=== PATIENT | female | born 1945 | race Caucasian/White ===

== ENCOUNTER → 2018-01-12 10:03 | Outpatient (CLI) | payer MEDICARE, OTHER, SELFPAY ==
--- NOTE | 2018-01-12 | DI.RAD.S_ITS ---
PROCEDURE: XR RIBS LT 2V INDICATIONS: PLEURODYNIA INTERCOSTAL PAIN TECHNIQUE: 2 views of the left ribs were acquired. COMPARISON: None. FINDINGS: Surgical changes and devices: None. Bones and chest wall: No fractures or dislocations. No suspicious bony lesions. Overlying soft tissues appear unremarkable. Lungs and pleura: The visualized lung appears clear. No pleural effusions or pneumothorax are visible. IMPRESSION: Source of pain is not seen. Depending on the clinical status followup by a nuclear medicine bone scan may become necessary. Dictated by: Jaime Palacio M.D. on 01/12/2018 at 10:32 Approved by: Jaime Palacio M.D. on 01/12/2018 at 10:32
--- NOTE | 2018-01-12 | DI.RAD.S_ITS ---
PROCEDURE: XR CHEST 2V INDICATIONS: PLEURODYNIA INTERCOSTAL PAIN TECHNIQUE: 2 views of the chest were acquired. COMPARISON: [facility], CR, RIBS UNILATERAL WITH PA CXR, 04/13/2015, 10:31. [facility], CR, XR RIBS LT 2V, 01/12/2018, 9:52. FINDINGS: Surgical changes and devices: None. Lungs and pleura: No pleural effusions or pneumothorax. Lungs are unchanged, source of pain is not seen.. Mediastinum: Mediastinal contours are normal. Heart size is normal. Bones and chest wall: No suspicious bony abnormalities. Soft tissues appear unremarkable. IMPRESSION: Source of pain is not identified. Dictated by: Jaime Palacio M.D. on 01/12/2018 at 10:31 Approved by: Jaime Palacio M.D. on 01/12/2018 at 10:32
== END ==
PROVIDERS: Family Provider Internal Medicine; PCP Internal Medicine; Visit Provider Physician Assistant
DX: R07.81 Pleurodynia (principal); R07.82 Intercostal pain
CPT/HCPCS: 71046; 71100

== ENCOUNTER 2018-07-04 09:02 | Emergency (ER) | payer MEDICARE, OTHER, SELFPAY ==
--- NOTE | 2018-07-04 09:07 | DI.RAD.S_ITS ---
PROCEDURE: XR CHEST 1V INDICATIONS: chest pain TECHNIQUE: One view of the chest was acquired. COMPARISON: None. FINDINGS: Surgical changes and devices: None. Lungs and pleura: No pleural effusions or pneumothorax. Mild diffuse reticulonodular interstitial opacities present. Mediastinum: Mediastinal contours appear normal. Heart size is normal. Bones and chest wall: No suspicious bony lesions. Overlying soft tissues appear unremarkable. IMPRESSION: Mild atypical pneumonia. Dictated by: Casey Ng M.D. on 07/04/2018 at 9:29 Approved by: Casey Ng M.D. on 07/04/2018 at 9:30
[2018-07-04 09:11] VITALS: BP 156/66; PULSE 90; RESP 15; TEMP 36.7; O2SAT 96; BMI 31.1
[2018-07-04 09:13] LABS: Add Manual Diff / Slide Review NO; Basophils Percent Auto 0.6 % (0-2); Eosinophils Percent Auto 3.6 % (2-4); Hematocrit 40.3 % (36-46); Hemoglobin 13.2 g/dL (12.0-16.0); Lymphocytes Percent Auto 27.5 % (25-40); Mean Corpuscular HGB Conc 32.9 % (30-36); Mean Corpuscular Hemoglobin 28.3 PG (26-34); Mean Corpuscular Volume 85.9 fL (80-100); Monocytes Percent Auto 11.1 % (3-14); Neutrophils Absolute Auto 4300 /uL (1500-7000); Neutrophils Percent Auto 57.2 % (50-75); Platelet Count 264 X10^3/uL (150-400); Red Blood Cell Count 4.69 X10^6/uL (4.0-5.2); Red Cell Distribution Width 14.4 % (11.6-14.8); White Blood Cell Count 7.5 X10^3/uL (4.5-11.0)
[2018-07-04] MEDS: SODIUM CHLORIDE 0.9% 1,000 ML 1000 ML IV (09:17)
[2018-07-04 09:22] LABS: PTT Partial Thromboplastin Tim 32 SECONDS (26.4-36.2)
[2018-07-04 09:24] LABS: Alanine Aminotransferase 23 IU/L (9-52); Albumin 4.5 g/dL (3.5-5.0); Albumin Globulin Ratio 1.5 (1.0-2.8); Alkaline Phosphatase 69 U/L (38-126); Aspartate Aminotransferase 20 IU/L (14-36); BUN Creatinine Ratio 21.3 (6-22); Bilirubin Total 0.3 mg/dL (0.2-1.3); Blood Urea Nitrogen 17 mg/dL (7-17); Calcium 9.3 mg/dL (8.4-10.2); Carbon Dioxide 24 mmol/L (22-32); Chloride 106 mmol/L (98-107); Creatine Kinase 68 U/L (30-135); Estimated Glomerular Filt Rate > 60.0 mL/min (>60); Glucose 105 mg/dL (80-110); HEMOLYSIS < 15 (0-50); Lipase 51 U/L (23-300); Potassium 4.1 mmol/L (3.4-5.1); Sodium 143 mmol/L (137-145); Total Protein 7.5 g/dL (6.3-8.2)
--- NOTE | 2018-07-04 09:30 | ED_ITS ---
HPI - Chest Pain General Chief Complaint: Chest Pain Stated Complaint: Chest Pain Time Seen by Provider: 07/04/18 09:06 Source: patient and EMS Mode of arrival: EMS Limitations: no limitations History of Present Illness HPI narrative: Patient is a 72-year-old female who presents with chest discomfort. She was on the elliptical her 6 min when she started developing pain. She actually had already been on a treadmill and lifted weights prior to this without any difficulty. The 1st time she has exercised in a number of months. She developed chest discomfort and heaviness which did begin to improve when she stopped. However EMS was there she was given nitroglycerin and brought to the hospital for further evaluation. She is currently chest pain -free. She did have an episode similar to this with her hiatal hernia. MD complaint: chest pain Onset (ago): minute(s) Severity: moderate Quality: tightness Pain radiation: none Relieving factors: nitroglycerin and rest Treatments prior to arrival chest pain: aspirin and nitroglycerin Related Data On Oral Contraceptives: No Home Medications Medication Instructions Recorded Confirmed amlodipine 5 mg tablet 5 mg PO DAILY 03/29/18 04/03/18 Allergies Allergy/AdvReac Type Severity Reaction Status Date / Time RICKEY Inhibitors Allergy Unknown Verified 04/03/18 11:06 [RICKEY INHIBITORS] STATINS Allergy Unknown Uncoded 04/03/18 11:06 Review of Systems Review of Systems GENERAL: Denies chills, fatigue, malaise, fever, sweats, travel HEENT: Denies sinus pain, ear pain, sore throat, difficulty swallowing, neck pain RESPIRATORY: Denies dyspnea, cough, wheezing, hemoptysis, sputum. CARDIOVASCULAR: See HPI GASTROINTESTINAL: Denies nausea, vomiting, abdominal pain, diarrhea, constipation, melena. : Denies dysuria, frequency, incontinence, hematuria, urinary retention, flank pain. MUSCULOSKELETAL: Denies weakness, joint pain, or bony pain SKIN: No rash, no erythema, no pruritus NEUROLOGIC: Denies weakness, dizziness, headache, numbness, change in speech, confusion PSYCHIATRIC: No concerning psychosocial issues. 12 point review of systems is negative except for those stated above and HPI PFSH Medical History Hyperlipidemia (Chronic) Hypertension (Chronic) Social History Smoking Status: Former smoker Comment: Father NM at age 71 Exam Initial Vital Signs Initial Vital Signs: Vital Signs Temperature 98.0 F 07/04/18 09:11 Pulse Rate 90 07/04/18 09:11 Respiratory Rate 15 07/04/18 09:11 Blood Pressure 156/66 H 07/04/18 09:11 Pulse Oximetry 96 07/04/18 09:11 GENERAL: Well-appearing, well-nourished and in no acute distress. HEENT: Head atraumatic,EOMI, pupils reactive, face symmetric CARDIOVASCULAR: Regular rate and rhythm without murmurs, rubs or gallops. RESPIRATORY: Breath sounds equal bilaterally, no wheezes rales or rhonchi. ABDOMEN: Soft, nontender. Normoactive bowel sounds all 4 quadrants. No guarding or rebound. EXTREMITIES: Normal range of motion, no clubbing or edema. Neurovascularly intact NEUROLOGICAL: Alert and oriented x4.Normal gait and speech. Cranial nerves II through XII grossly intact. SKIN: Warm, dry, no laceration, no petechiae, no rashes or lesions. Scores HEART Score Heart Score history: Slightly Suspicious Heart Score EKG: Normal Heart Score Age: > or = 65 years old Heart Score risk factors: 1-2 risk factors Heart Score troponin: < or = to normal limit Heart Score Total: 3 Course Orders Ordered: ED Orders 07/04/18 09:02 Complete Blood Count AUTO DIFF Stat Comprehensive Metabolic Panel Stat Lipase Stat Partial Thromboplastin Time Stat Prothrombin Time INR Stat Troponin & CK Cardiac Panel Stat 07/04/18 09:07 XR chest 1V Stat EKG-12 Lead Stat 07/04/18 09:37 B Type Natriuretic Peptide Stat 07/04/18 11:00 Troponin I Stat Discontinued Medications Sodium Chloride (Normal Saline 0.9%) 1,000 mls @ 1,000 mls/hr IV CONT KUN Last Infusion: 07/04/18 10:32 Dose: 0 mls/hr Admin: 07/04/18 09:17 Dose: 1,000 mls/hr Vital Signs - 8 hr 07/04/18 09:11 07/04/18 10:32 07/04/18 11:00 Temperature 98.0 F Pulse Rate 90 72 74 Respiratory Rate 15 18 16 Blood Pressure 156/66 H Blood Pressure [Left Arm] 128/47 L 138/48 L Pulse Oximetry 96 98 98 07/04/18 11:32 07/04/18 12:05 Temperature 98.4 F Pulse Rate 69 92 H Respiratory Rate 17 18 Blood Pressure 140/53 L Blood Pressure [Left Arm] 142/51 H Pulse Oximetry 98 98 MDM - Chest Pain Lab Data Attestation: I reviewed the patient's lab results. Result diagrams: 07/04/18 09:02 07/04/18 09:02 Lab Results 07/04/18 07/04/18 07/04/18 Range/Units 09:02 09:02 09:02 WBC 7.5 (4.5-11.0) X10^3/uL RBC 4.69 (4.0-5.2) X10^6/uL Hgb 13.2 (12.0-16.0) g/dL Hct 40.3 (36-46) % MCV 85.9 (80-100) fL MCH 28.3 (26-34) PG MCHC 32.9 (30-36) % RDW 14.4 (11.6-14.8) % Plt Count 264 (150-400) X10^3/uL Neut % (Auto) 57.2 (50-75) % Lymph % (Auto) 27.5 (25-40) % Schleicher % (Auto) 11.1 (3-14) % Eos % (Auto) 3.6 (2-4) % Baso % (Auto) 0.6 (0-2) % Neut # (Auto) 4300 (6009-1560) /uL PT 11.0 (10.1-12.7) SECONDS INR 1.0 (0.9-1.3) APTT 32 (26.4-36.2) SECONDS Sodium 143 (137-145) mmol/L Potassium 4.1 (3.4-5.1) mmol/L Chloride 106 (98-107) mmol/L Carbon Dioxide 24 (22-32) mmol/L BUN 17 (7-17) mg/dL Creatinine 0.80 (0.52-1.04) mg/dL Estimated GFR > 60.0 (>60) mL/min BUN/Creatinine Ratio 21.3 (6-22) Glucose 105 (80-110) mg/dL Calcium 9.3 (8.4-10.2) mg/dL Total Bilirubin 0.3 (0.2-1.3) mg/dL AST 20 (14-36) IU/L ALT 23 (9-52) IU/L Alkaline Phosphatase 69 (38-126) U/L Total Creatine Kinase 68 (30-135) U/L CK-MB (CK-2) TNP CK-MB (CK-2) Rel Index TNP Troponin I < 0.012 (0.01-0.034) ng/mL B-Natriuretic Peptide (<100) Total Protein 7.5 (6.3-8.2) g/dL Albumin 4.5 (3.5-5.0) g/dL Globulin 3.0 (1.7-4.1) g/dL Albumin/Globulin Ratio 1.5 (1.0-2.8) Lipase 51 (23-300) U/L Urine Color Urine Appearance Urine pH (4.5-8.0) Ur Specific [place] (1.000-1.035) Urine Protein (Negative) Urine Glucose (UA) (Normal) g/dL Urine Ketones (NEGATIVE) Urine Occult Blood (Negative) Urine Nitrate (Negative) Urine Bilirubin (NEGATIVE) Urine Urobilinogen (0.2) E.U./dL Ur Leukocyte Esterase (NEGATIVE) Urine RBC (0-5/HPF) Urine WBC (0-5/HPF) Urine Bacteria (None) Ur Culture Indicated? Micro UA Comment 07/04/18 07/04/18 07/04/18 Range/Units 09:37 11:00 Unknown WBC (4.5-11.0) X10^3/uL RBC (4.0-5.2) X10^6/uL Hgb (12.0-16.0) g/dL Hct (36-46) % MCV (80-100) fL MCH (26-34) PG MCHC (30-36) % RDW (11.6-14.8) % Plt Count (150-400) X10^3/uL Neut % (Auto) (50-75) % Lymph % (Auto) (25-40) % Schleicher % (Auto) (3-14) % Eos % (Auto) (2-4) % Baso % (Auto) (0-2) % Neut # (Auto) (1122-7713) /uL PT (10.1-12.7) SECONDS INR (0.9-1.3) APTT (26.4-36.2) SECONDS Sodium (137-145) mmol/L Potassium (3.4-5.1) mmol/L Chloride (98-107) mmol/L Carbon Dioxide (22-32) mmol/L BUN (7-17) mg/dL Creatinine (0.52-1.04) mg/dL Estimated GFR (>60) mL/min BUN/Creatinine Ratio (6-22) Glucose (80-110) mg/dL Calcium (8.4-10.2) mg/dL Total Bilirubin (0.2-1.3) mg/dL AST (14-36) IU/L ALT (9-52) IU/L Alkaline Phosphatase (38-126) U/L Total Creatine Kinase (30-135) U/L CK-MB (CK-2) CK-MB (CK-2) Rel Index Troponin I < 0.012 (0.01-0.034) ng/mL B-Natriuretic Peptide < 100 (<100) Total Protein (6.3-8.2) g/dL Albumin (3.5-5.0) g/dL Globulin (1.7-4.1) g/dL Albumin/Globulin Ratio (1.0-2.8) Lipase (23-300) U/L Urine Color Yellow Urine Appearance Clear Urine pH 5.5 (4.5-8.0) Ur Specific [place] 1.010 (1.000-1.035) Urine Protein Negative (Negative) Urine Glucose (UA) Negative (Normal) g/dL Urine Ketones Negative (NEGATIVE) Urine Occult Blood Negative (Negative) Urine Nitrate Negative (Negative) Urine Bilirubin Negative (NEGATIVE) Urine Urobilinogen 0.2 (0.2) E.U./dL Ur Leukocyte Esterase 1+ H (NEGATIVE) Urine RBC 0-1/hpf (0-5/HPF) Urine WBC 1-5/hpf (0-5/HPF) Urine Bacteria None seen (None) Ur Culture Indicated? Specimen cultured Micro UA Comment Not Reportable Imaging Data Chest x-ray: Radiologist's impression: PROCEDURE: XR CHEST 1V INDICATIONS: chest pain TECHNIQUE: One view of the chest was acquired. COMPARISON: None. FINDINGS: Surgical changes and devices: None. Lungs and pleura: No pleural effusions or pneumothorax. Mild diffuse reticulonodular interstitial opacities present. Mediastinum: Mediastinal contours appear normal. Heart size is normal. Bones and chest wall: No suspicious bony lesions. Overlying soft tissues appear unremarkable. IMPRESSION: Mild atypical pneumonia. Dictated by: Casey Ng M.D. on 07/04/2018 at 9:29 ECG Data Attestation: I personally reviewed and interpreted this ECG as follows: Prior ECG tracings: not available for review Interpretation: Normal sinus rhythm rate [address] changes or T-wave inversions no priors to compare a Q-wave noted in lead 3 nonpathologic OK interval 143 MDM Narrative Medical decision making narrative: Patient has no recurrence of chest pain. 2- troponins. She actually did quite a bit of exercise prior to her chest pain. Recommended outpatient workup. I discussed all findings with the patient and spouse, Education has been performed regarding treatment plan, diagnosis, warning signs and symptoms and all concerns have been addressed. Verbally agree with and understood all of the above. Discharge Plan Departure Patient Disposition: Home Clinical Impression: Atypical chest pain Discharge Date/Time: 07/04/18 12:11 Interventions: ED Discharge Assessment Last Done: 07/04/18 12:05 Instructions: DI for Atypical Chest Pain Activity Restrictions/Additional Instructions: *You have been diagnosed with atypical chest *What to do: You will likely still require further cardiac testing with her primary care provider. However workup in the emergency department is negative. *Continue to take medications as directed Aspirin 81 mg daily *Follow up with your primary care provider in 2-3 days *Return to ER if you should have increasing chest discomfort, shortness of breath, heart palpitation or any new, worsening or concerning symptoms Prescriptions: No Action amlodipine 5 mg tablet 5 mg PO DAILY RF: 0 Referrals: Pb Mckoen MD [Primary Care Provider] -
[2018-07-04 09:40] LABS: Troponin I < 0.012 ng/mL (0.01-0.034)
[2018-07-04 10:32] VITALS: BP 128/47; PULSE 72; RESP 18; O2SAT 98
[2018-07-04 10:32] LABS: B Type Natriuretic Peptide < 100 (<100)
[2018-07-04 11:00] VITALS: BP 138/48; PULSE 74; RESP 16; O2SAT 98
[2018-07-04 11:04] LABS: Bacteria Urine None Seen
[2018-07-04 11:07] LABS: Appearance Urine UA CLEAR; Bilirubin Urine UA NEGATIVE (NEGATIVE); Color Urine UA YELLOW; Glucose Urine UA NEGATIVE (Normal); Ketones Urine UA NEGATIVE (NEGATIVE); Leukocyte Esterase Urine UA 1+ (NEGATIVE); Nitrite Urine UA NEGATIVE (Negative); Occult Blood Urine UA NEGATIVE (Negative); Protein Urine UA NEGATIVE (Negative); Urobilinogen Urine UA 0.2 E.U./dL (0.2); pH Urine UA 5.5 (4.5-8.0)
[2018-07-04 11:10] LABS: Culture Indicated Urine Specimen Cultured; RBC Urine 0-1/HPF (0-5/HPF); WBC Urine 1-5/HPF (0-5/HPF)
[2018-07-04 11:32] VITALS: BP 142/51; PULSE 69; RESP 17; O2SAT 98
[2018-07-04 11:57] LABS: Troponin I < 0.012 ng/mL (0.01-0.034)
[2018-07-04 12:05] VITALS: BP 140/53; PULSE 92; RESP 18; TEMP 36.9; O2SAT 98
== END 2018-07-04 12:11 | disposition home or self-care (01) ==
PROVIDERS: Emergency Provider Emergency Medicine; Family Provider Internal Medicine; PCP Internal Medicine
DX: R07.89 Other chest pain (principal)
CPT/HCPCS: 71045; 80053; 81001; 82550; 83690; 83880; 84484; 85025; 85610; 85730; 87077; 87086; 93005; 96360; 99283; 99285

== ENCOUNTER → 2018-07-16 14:15 | Outpatient (CLI) | payer MEDICARE, OTHER, SELFPAY ==
--- NOTE | 2018-07-16 | DI.RAD.S_ITS ---
This blank DEXA report has been sent in error by the PACS system. The correct and complete report will be forthcoming in 1-2 days. Thank you for your patience and understanding. Dictated by: Bartolo Melo M.D. on 07/16/2018 at 15:49 Approved by: Bartolo Melo M.D. on 07/16/2018 at 15:50
== END ==
PROVIDERS: Family Provider Internal Medicine; PCP Internal Medicine; Visit Provider Internal Medicine
DX: M85.852 Other specified disorders of bone density and structure, left thigh (principal); Z78.0 Asymptomatic menopausal state; Z90.722 Acquired absence of ovaries, bilateral; Z87.891 Personal history of nicotine dependence
CPT/HCPCS: 77080

== ENCOUNTER → 2018-07-18 07:42 | Outpatient (CLI) | payer MEDICARE, OTHER, SELFPAY ==
--- NOTE | 2018-07-18 | DI.MG.S_ITS ---
BILATERAL DIGITAL SCREENING MAMMOGRAM 3D/2D WITH CAD: 07/18/2018 CLINICAL: Routine screening. Comparison is made to exam [facility]: [facility] [email or web address] [facility]. There are scattered fibroglandular elements in both breasts. Current study was also evaluated with a Computer Aided Detection (CAD) system. No significant masses, calcifications, or other findings are seen in either breast. There has been no significant interval change. IMPRESSION: NEGATIVE There is no mammographic evidence of malignancy. A 1 year screening mammogram is recommended. This exam was interpreted at Station ID: [id number]. NOTE: For mammograms, a report in lay terms will be sent to the patient. Approximately 15% of breast malignancies will not be visualized mammographically. In the management of a palpable breast mass, a negative mammogram must not discourage biopsy of a clinically suspicious lesion. Electronically Signed By: Bev mccoy/sharda:07/18/2018 08:18:11 letter sent: Normal Exam ACR BI-RADS Category 1: Negative [id number]
== END ==
PROVIDERS: Family Provider Internal Medicine; PCP Internal Medicine; Visit Provider Internal Medicine
DX: Z12.31 Encounter for screening mammogram for malignant neoplasm of breast (principal)
CPT/HCPCS: 77063; 77067

== ENCOUNTER → 2019-08-01 14:58 | Outpatient (ROUT) | payer MEDICARE, OTHER, SELFPAY ==
[2019-08-01 15:25] LABS: BUN Creatinine Ratio 22.9 (6-22); Blood Urea Nitrogen 16 mg/dL (7-17); Calcium 9.9 mg/dL (8.4-10.2); Carbon Dioxide 25 mmol/L (22-32); Chloride 104 mmol/L (98-107); Estimated Glomerular Filt Rate > 60.0 mL/min (>60); Glucose 94 mg/dL (80-110); HEMOLYSIS < 15 (0-50); Potassium 4.3 mmol/L (3.4-5.1); Sodium 138 mmol/L (137-145)
== END ==
PROVIDERS: Family Provider Internal Medicine; PCP Internal Medicine; Visit Provider Internal Medicine
DX: I10 Essential (primary) hypertension (principal); Z20.820 Contact with and (suspected) exposure to varicella
CPT/HCPCS: 80048; 86787

== ENCOUNTER → 2019-08-05 08:31 | Outpatient (CLI) | payer MEDICARE, OTHER, SELFPAY ==
--- NOTE | 2019-08-05 08:36 | DI.RAD.S_ITS ---
PROCEDURE: XR LUMBAR SPINE MIN 4V INDICATIONS: Low back pain left lower extremity pain TECHNIQUE: 5 views of the lumbar spine were acquired. COMPARISON: [facility], , L-SPINE 2-3 VIEWS, 11/28/2007, 12:20. FINDINGS: Bones: 5 nonrib-bearing vertebrae are present. There is slightly dextroscoliotic bony alignment. No vertebral body compression fractures. No suspicious bony lesions. There is a minimal degree of degenerative disc disease to the L45 level where mild to moderate disc height reduction is present, and facet osteoarthritis is moderately severe at this level and severe at L5-S1 with slight associated retrolisthesis of L5 on S1. Soft tissues: Overlying bowel gas pattern is normal. No suspicious soft tissue calcifications. Oblique images: No pars defects. IMPRESSION: No trauma found. The degenerative changes are most prominent at L5-S1 with a slight degree of retrolisthesis, associated with ligamentous laxity from disc height reduction and facet osteoarthritis bilaterally. No definite spinal or foraminal stenosis at L4-5. Dictated by: Jaime Palacio M.D. on 08/05/2019 at 10:19 Approved by: Jaime Palacio M.D. on 08/05/2019 at 10:20
--- NOTE | 2019-08-05 08:36 | DI.RAD.S_ITS ---
PROCEDURE: XR KNEE STANDING BI INDICATIONS: Knee pain gait instability TECHNIQUE: Single view, standing, of the right knee, and single view, standing, of the left knee. COMPARISON: [facility], , KNEE 3V LEFT, 04/17/2008, 9:22. FINDINGS: Bones: No acute fractures or dislocations. Patellar alignment is normal on the sunrise view. No suspicious bony lesions. Joint spaces appear normal with weightbearing. Soft tissues: No knee joint effusions. No suspicious soft tissue calcification. IMPRESSION: Mild medial compartment joint space narrowing slightly more on the left than the right, no trauma found. No effusion or loose body identified. Dictated by: Jaime Palacio M.D. on 08/05/2019 at 10:03 Approved by: Jaime Palacio M.D. on 08/05/2019 at 10:19
== END ==
PROVIDERS: PCP Internal Medicine; Visit Provider Physical Medicine & Rehabilitation
DX: M54.5 Low back pain (principal); M79.605 Pain in left leg; M47.816 Spondylosis without myelopathy or radiculopathy, lumbar region; M47.817 Spondylosis without myelopathy or radiculopathy, lumbosacral region; G89.29 Other chronic pain; R26.81 Unsteadiness on feet; M25.559 Pain in unspecified hip; M17.10 Unilateral primary osteoarthritis, unspecified knee; M48.061 Spinal stenosis, lumbar region without neurogenic claudication; M25.561 Pain in right knee; M25.562 Pain in left knee; Z96.662 Presence of left artificial ankle joint
CPT/HCPCS: 72110; 73565; 99214

== ENCOUNTER → 2019-09-03 11:40 | Outpatient (CLI) | payer MEDICARE, OTHER, SELFPAY ==
--- NOTE | 2019-09-03 11:43 | DI.MRI.S_ITS ---
PROCEDURE: MR LUMBAR SPINE WO CON INDICATIONS: Progressive low back pain lower extremity weakness TECHNIQUE: Noncontrast sagittal T1 spin echo and T2 fast echo, sagittal STIR, axial T1 and T2 fast spin echo through the lumbar spine. In cases with scoliosis, additional coronal T2 fast spin echo may be performed. COMPARISON: [facility], CR, XR LUMBAR SPINE MIN 4V, 08/05/2019, 8:37. FINDINGS: Image quality: Excellent. Alignment and Curvature: There is trace anterolisthesis of L4 on L5. Bone Marrow: Marrow is of normal overall signal. No acute vertebral body compression fractures. Spinal Cord: Conus medullaris terminates at the L1-L2 level. Visualized cord demonstrates normal signal and size. Paraspinous Soft Tissues: No paravertebral masses. Discs: Moderate desiccation is present throughout the lumbar spine. L1-L2: No disc bulge, spinal stenosis or foraminal narrowing. L2-L3: Minimal disc bulge without spinal stenosis or foraminal narrowing. L3-L4: Minimal disc bulge without spinal stenosis or foraminal narrowing. L4-L5: Mild disc bulge without spinal stenosis. Mild left and minimal right foraminal narrowing. L5-S1: Mild disc bulge with minimal canal narrowing. Severe right and moderate to severe left foraminal narrowing with nerve root flattening on the right. IMPRESSION: 1. Degenerative changes most prominent L5-S1 demonstrating moderate to severe bilateral foraminal narrowing predominately secondary to facet arthropathy. Dictated by: Kelly Boone M.D. on 09/03/2019 at 16:07 Approved by: Kelly Boone M.D. on 09/03/2019 at 16:22
== END ==
PROVIDERS: PCP Internal Medicine; Referring Provider Physical Medicine & Rehabilitation; Visit Provider Physical Medicine & Rehabilitation
DX: M54.5 Low back pain (principal); M47.817 Spondylosis without myelopathy or radiculopathy, lumbosacral region; M48.07 Spinal stenosis, lumbosacral region; R29.898 Other symptoms and signs involving the musculoskeletal system; R26.81 Unsteadiness on feet
CPT/HCPCS: 72148

== ENCOUNTER 2019-09-12 09:45 | Outpatient (RCR) | payer MEDICARE, OTHER, SELFPAY ==
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
--- NOTE | 2019-08-07 13:00 | PT.OPPOC ---
Physical, Occupational & Speech Therapy At [facility] Current Diagnoses Spinal stenosis, lumbar region without neurogenic claudication (08/07/19) Unsteadiness on feet (08/07/19) Presence of left artificial ankle joint (08/07/19) Visit Care Team Role Provider Type Pb Mckeon MD Primary Care Provider Physician Specialty: Internal Medicine Address: [address] [place] [address], [id number] Email: [email or web address] Carlos A Prince DO Attending Provider Physician Specialty: Physiatry Pain Management Address: [facility], [place], [address] Email: [email or web address] Plan Of Care PT-OP-T Assessment and Plan Start: 08/07/19 14:42 Freq: Status: Active Protocol: Document 08/07/19 14:43 EG (Rec: 08/07/19 15:20 EG [email or web address]) Physical Therapy Assessment Rehab Potential Rehabilitation Potential Good Evaluation Complexity Number of Personal Factors/Comorbidities 3 or More Number of Body Systems Impaired 4 or More Clinical Presentation at Evaluation Stable Impairments Impairments Activity Tolerance,Functional Activities,Functional Mobility ,Posture,ROM,Sensation, Strength Goals Three Impairment Sleep Short Term Goal (STG) Patient will be able to sleep 75% of the night with a pain level no more than 2/10 in 4 weeks. STG Duration 4 weeks Longterm Goal (LTG) Patient will be able to sleep through the night without waking up from pain or tingling in the calf in 6 weeks. LTG Duration 6 weeks Two Impairment Strength Short Term Goal (STG) Patient will increase hip abduction strength to 4/5 in 4 weeks. STG Duration 4 weeks Longterm Goal (LTG) Patient will increase hip abduction strength to 4+/5 in 6 weeks. LTG Duration 6 weeks One Impairment Activity Tolerance Short Term Goal (STG) Patient will be able to stand for >30 minutes with no more than 2/10 pain in 3 weeks. STG Duration 3 weeks Orthodontist Small Business Owner Goal (LTG) Patient will be able to return to gym routine at 3 days/week for 1 hour each day with no more than 1/10 pain in 4-6 weeks. LTG Duration 4-6 weeks Assessment Summary Assessment Patient is a pleasant 73 year old female who presents to physical therapy for numbness and tingling down the L leg. Patient's symptoms were not recreated throughout the evaluation and does not seem to be aggravated by spinal movements. Patient does have valgus of the knees and poor ankle stability due to past history and will benefit from strengthening of posterior lateral hip as well as core strengthening to help stabilize well standing still and during balance activities. Patient should be educated on sleeping position and prevent compression of the peripheral nerves of the lower leg while sleeping. Patient will do well with a strengthening and cardio routine that she can return to when ending therapy and going back to the gym. Physical Therapy Plan Frequency and Duration Frequency of Treatment 2x/Week Duration of Treatment 8 weeks Plan of Care Start Date 08/07/19 Plan of Care End Date 10/02/19 Therapeutic Interventions Therapeutic Interventions Balance Training,Coordination Training,Gait Training,Home Exercise Program,Manual Therapy,Neuromuscular Re- education,Self-Care/Home Management,Soft Tissue Mobilization,Therapeutic Activities,Therapeutic Exercises Modalities Cold Pack/Ice Massage,Electric Stimulation Next Visit Focus/Plan Next Note Type Treatment Note Next Visit Plan Assess HEP. See how treadmill and shuttle are for her symptoms. Assess sleeping posture and educate on this. Progress strengthening of posterior lateral hip as well as core strengthening as tolerated. Assess balance in more deatail Plan of Care Dates Plan of Care Start Date 08/07/19 Plan of Care End Date 10/02/19 IAna DPT, supervised all treatment performed by, and agreed with the plan of care, as performed by [place] More[place]. Electronically Signed by: Ana Ascencio, PT 08/08/19 1300 Please Sign and Return: I have reviewed this Plan of Care and certify that the skilled therapy services above are required to meet the patient?s needs. Physician Signature Date Printed Name and Credentials Clinical Instructor Signature Printed Name and Credentials
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
== END 2019-12-23 08:44 ==
LOC: PHYS 09:45
PROVIDERS: PCP Internal Medicine; Visit Provider Physical Medicine & Rehabilitation
DX: M48.061 Spinal stenosis, lumbar region without neurogenic claudication (principal); Z96.662 Presence of left artificial ankle joint; R26.81 Unsteadiness on feet
CPT/HCPCS: 97110; 97161

== ENCOUNTER → 2021-01-06 10:35 | Outpatient (CLI) | payer MEDICARE, OTHER, SELFPAY ==
[2021-01-06 11:52] LABS: BUN Creatinine Ratio 23.8 (6-22); Blood Urea Nitrogen 20 mg/dL (7-17); Calcium 9.7 mg/dL (8.4-10.2); Carbon Dioxide 28 mmol/L (22-32); Chloride 109 mmol/L (98-107); Estimated Glomerular Filt Rate > 60.0 mL/min (>60); Glucose 98 mg/dL (80-110); HEMOLYSIS < 15 (0-50); Potassium 4.3 mmol/L (3.4-5.1); Sodium 141 mmol/L (137-145)
[2021-01-06 12:14] LABS: Vitamin D 25 Hydroxy (D3) 15.1 ng/mL (30.0-100.0)
== END ==
PROVIDERS: PCP Student in an Organized Health Care Education/Training Program; Referring Provider Student in an Organized Health Care Education/Training Program; Visit Provider Student in an Organized Health Care Education/Training Program
DX: E55.9 Vitamin D deficiency, unspecified (principal); Z78.0 Asymptomatic menopausal state; I10 Essential (primary) hypertension; Z79.1 Long term (current) use of non-steroidal anti-inflammatories (NSAID)
CPT/HCPCS: 36415; 80048; 82306

== ENCOUNTER → 2021-01-19 11:32 | Outpatient (CLI) | payer MEDICARE, OTHER, SELFPAY ==
--- NOTE | 2021-01-19 11:34 | DI.RAD.S_ITS ---
PROCEDURE: XR DEXA AXIAL SKELETON INDICATIONS: Osteoporosis screening COMPARISON: [facility], CR, XR DEXA AXIAL SKELETON, 07/16/2018, 14:43. FINDINGS: This blank DEXA report has been sent in error by the PACS system. The correct and complete report will be forthcoming in 1-2 days. Thank you for your patience and understanding. Dictated by: Rosy Durbin MD, PhD on 01/19/2021 at 17:33 Approved by: Rosy Durbin MD, PhD on 01/19/2021 at 17:33
== END ==
PROVIDERS: PCP Student in an Organized Health Care Education/Training Program; Referring Provider Student in an Organized Health Care Education/Training Program; Visit Provider Student in an Organized Health Care Education/Training Program
DX: M81.0 Age-related osteoporosis without current pathological fracture (principal); Z13.820 Encounter for screening for osteoporosis; Z78.0 Asymptomatic menopausal state; Z90.722 Acquired absence of ovaries, bilateral; Z87.891 Personal history of nicotine dependence
CPT/HCPCS: 77080

== ENCOUNTER → 2021-05-07 10:52 | Outpatient (CLI) | payer MEDICARE, OTHER, SELFPAY | PROVIDERS: PCP Student in an Organized Health Care Education/Training Program; Referring Provider Student in an Organized Health Care Education/Training Program; Visit Provider Student in an Organized Health Care Education/Training Program | DX: E55.9 Vitamin D deficiency, unspecified (principal) | CPT/HCPCS: 36415; 82306 ==

== ENCOUNTER → 2022-05-10 08:45 | Outpatient (CLI) | payer MEDICARE, OTHER, SELFPAY ==
[2022-05-10 11:12] LABS: Blood Urea Nitrogen 15 mg/dL (7-17); Carbon Dioxide 27 mmol/L (22-32); Chloride 107 mmol/L (98-107); Estimated Glomerular Filt Rate > 60 mL/min (>60); Glucose 104 mg/dL (80-110); HEMOLYSIS < 15 (0-50); Potassium 4.5 mmol/L (3.4-5.1); Sodium 142 mmol/L (137-145)
== END ==
PROVIDERS: PCP Student in an Organized Health Care Education/Training Program; Referring Provider Student in an Organized Health Care Education/Training Program; Visit Provider Student in an Organized Health Care Education/Training Program
DX: I10 Essential (primary) hypertension (principal); M85.80 Other specified disorders of bone density and structure, unspecified site
CPT/HCPCS: 36415; 80048

== ENCOUNTER → 2023-08-04 | Outpatient (CLI) | payer MEDICARE, OTHER, SELFPAY ==
--- NOTE | 2023-08-04 11:34 | DI.RAD.S_ITS ---
Bone Density Report Name: LIZZY BANG Age: 77 Sex: Female Ethnicity: White Date of : 1945 Indication: postmenopausal osteoporosis; Referring Provider: SONJA STERLING Study: Bone densitometry was performed. Exam Date: August 04, 2023 Accession number: [id number] Bone Density: Region BMD T-score Z-score Classification AP Spine(L1-L4) 0.909 -1.3 1.3 Osteopenia Femoral Neck (Left) 0.585 -2.4 -0.1 Osteopenia Total Hip (Left) 0.616 -2.7 -0.7 Osteoporosis Femoral Neck (Right) 0.714 -1.2 1.0 Osteopenia Total Hip (Right) 0.739 -1.7 0.3 Osteopenia Total Hip Mean 0.677 -2.2 -0.2 Osteopenia World Health Organization criteria for BMD impression classify patients as: Normal (T-score at or above -1.0), Osteopenia (T-score between -1.0 and -2.5), or Osteoporosis (T-score at or below -2.5). 10-year Fracture Risk: FRAX not reported because: Some T-score for Spine Total or Hip Total or Femoral Neck at or below -2.5 Previous Exams: -- Region Exam Age BMD T-score BMD Change BMD Change Date g/cm2 vs Baseline vs Previous -- AP Spine (L1-L4) 08/04/2023 77 0.909 -1.3 -0.019 (-2.0%)# -0.006 (-0.6%)# 01/19/2021 75 0.915 -1.2 -0.013 (-1.4%) 0.001 (0.1%) 07/16/2018 72 0.914 -1.2 -0.014 (-1.5%) -0.014 (-1.5%) 04/17/2008 62 0.928 -1.1 Total Hip(Left) 08/04/2023 77 0.616 -2.7 -0.136 (-18.1%)# -0.001 (-0.2%)# 01/19/2021 75 0.617 -2.7 -0.135 (-18.0%)* -0.051 (-7.7%)* 07/16/2018 72 0.669 -2.2 -0.084 (-11.1%)* -0.084 (-11.1%)* 04/17/2008 62 0.752 -1.6 Total Hip(Right) 08/04/2023 77 0.739 -1.7 -0.078 (-9.6%)# 0.019 (2.6%)# 01/19/2021 75 0.720 -1.8 -0.097 (-11.9%)* -0.029 (-3.9%)* 07/16/2018 72 0.749 -1.6 -0.068 (-8.3%)* -0.068 (-8.3%)* 04/17/2008 62 0.817 -1.0 -- *Denotes significance at 95% confidence level, LSC for AP Spine = 0.022 g/cm2, LSC for Total Hip = 0.027 g/cm2 # Denotes dissimilar scan types or analysis methods Impression: The patient has osteoporosis, based on the Left Total Hip T-score. No significant bone loss was observed. Discussion: INCREASED RISK OF FRACTURE. BONE DENSITY IS UNDESIRABLY LOW AT ONE OR MORE SKELETAL SITES, CONSISTENT WITH POSTMENOPAUSAL OSTEOPOROSIS. This patient's lowest T-score meets the World Health Organization's (WHO) criteria for osteoporosis at one or more sites (T-score -2.5 or below). In untreated patients, the risk of osteoporotic fracture increases approximately two-fold for each 1.0 SD decrease in T-score. Low bone density is not the only risk factor for fracture; also consider factors such as patient's age, frailty or poor health, risk of falling, risk of injury, previous osteoporotic fracture, family history of osteoporosis, cigarette smoking, low body weight, etc. Not everyone with low bone mineral density has osteoporosis; osteomalacia and other metabolic bone disorders should also be considered. Patients who have osteoporosis should be evaluated for specific diseases and conditions (secondary causes) that may cause or contribute to bone loss. The [place] [employer] (AACE) and National Osteoporosis Foundation (NOF) recommend pharmacologic intervention for all postmenopausal women whose T-score is in this range. The patient should follow a healthful lifestyle (good nutrition with adequate calcium and vitamin D, and appropriate weight-bearing exercise). Follow-Up: Consider a repeat BMD and Vertebral Fracture Assessment (VFA) exam in 2 years or sooner if medically necessary, to reassess this patient's status. Reported by: BRIANNE ARRINGTON M.D. on 08/04/2023 12:21:00 PM.
== END ==
LOC: RAD 11:34
PROVIDERS: PCP Student in an Organized Health Care Education/Training Program; Referring Provider Student in an Organized Health Care Education/Training Program; Visit Provider Student in an Organized Health Care Education/Training Program
DX: M81.0 Age-related osteoporosis without current pathological fracture (principal)
CPT/HCPCS: 77080